=== PATIENT | male | born 1950 | race Caucasian/White ===

== ENCOUNTER 2017-09-30 12:08 | Inpatient (IN) ==
--- NOTE | 2017-09-30 12:56 | Emergency Department Note ---
Disposition Clinical Impression: Elevated troponin, Elevated brain natriuretic peptide (BNP) level, Elevated d- dimer, ÓSCAR (acute kidney injury), Abnormal EKG, Hypoxia Disposition: Admitted As Inpatient Condition: Fair Referrals: Cora Hartman MD [Primary Care Provider] - Forms: ED Satisfaction Letter Time of Disposition: 18:46 Arrhythmia/Palpitations HPI - General Chief Complaint: ED Arrhythmia/Palpitations Stated Complaint: "Afib" Time Seen by Provider: 09/30/17 12:39 Source: patient, family Mode of arrival: ambulatory Limitations: no limitations Nursing Notes Reviewed: Yes Vital Signs Reviewed: Yes - History of Present Illness HPI Narrative: Patient is a 67-year-old male with no past medical history except for right- sided neck lipoma. He presents today as a referral from [facility] due to concern for heart arrhythmia and low potassium. Note sent over from preop area reports a potassium of 2.3, reported being in A. fib on the monitor. The patient himself says that he was there to get preop clearance for removal of a lipoma on the right side of his neck by Dr. Mcknight. He says that for the last month, he has been having chest pressure, mainly left-sided, worse with exertion, no radiation, no associated sweating, nausea, vomiting, fevers, abdominal pain. No current chest pain or dyspnea. He has never had a previous heart attack, heart stent, any previous cardiac workup. Also reports that he had basic blood work within the past few days that showed a potassium of 2.3. He was supposed to follow up with his primary care physician but has not. Denies any history of irregular heart rhythms. - Related Data Home Medications Medication Instructions Recorded Confirmed Levothyroxine [Synthroid] 50 mcg PO 0630 09/30/17 09/30/17 Potassium Chloride [Klor-Con 10] 10 meq PO BID 09/30/17 09/30/17 Allergies Allergy/AdvReac Type Severity Reaction Status Date / Time codeine Allergy See Verified 09/30/17 12:16 Comments All systems ED: reviewed and negative except as stated. Constitutional: Denies: fever Cardiovascular: Reports: chest pain, dyspnea on exertion Respiratory: Reports: dyspnea. Denies: cough, wheezes, hemoptysis, stridor, sputum production Gastrointestinal: Denies: abdominal pain, nausea, vomiting, diarrhea Genitourinary: Denies: urgency, dysuria Neurological: Denies: headache, weakness, numbness, paresthesias Past Medical History - Past Medical History Attestation: Yes The following information was validated with the patient. Source: patient Medical history: Reports: diabetes Psychiatric history: Reports: no psych history - Social History Smoking Status: Never smoker Smokeless Tobacco Status: No Alcohol use: Reports: none Drug use: Reports: none Physical Exam - General Limitations: no limitations General appearance: alert, in no apparent distress - Head Head exam: atraumatic, normocephalic, normal inspection - Eye Eye exam: Present: normal appearance, PERRL, EOMI - ENT ENT exam: normal exam, normal oropharynx, mucous membranes moist - Neck Neck exam: Present: full ROM, trachea midline, other (Large right-sided lipoma approx size of baseball) - Chest Chest inspection: Present: normal inspection, symmetric chest wall rise - Respiratory Respiratory exam: Present: normal lung sounds bilaterally - Cardiovascular Cardiovascular exam: Present: regular rate, normal rhythm, normal heart sounds - Abdominal Exam Abdominal exam: Present: soft, Non-Tender. Absent: tenderness, distention, guarding, rebound, rigidity - Extremities Exam Extremities exam: Present: normal inspection, full ROM. Absent: tenderness, pedal edema - Neurological Exam Neurological exam: Present: alert, oriented X3, CN II-XII intact. Absent: motor sensory deficit - Psychiatric Psychiatric exam: Present: normal affect, normal mood - Skin Skin exam: Present: warm, dry, intact, normal color Course Course Narrative: Patient mildly hypertensive. He is also hypoxic at about 85-88% on presentation. Currently on 2-3 L nasal cannula oxygen and maintaining saturation of 95%. Physical exam shows sinus bradycardia, lungs were clear to auscultation bilaterally. Abdomen soft and nontender. EKG obtained here shows normal sinus rhythm with 1 PAC. No signs of A. fib. There is a possible U wave in V2, and V3. Otherwise, no other acute ST changes. We will go ahead and start potassium infusion. We will repeat BMP to assess potassium. Also obtain chest x-ray, troponin. We will also obtain d-dimer to due to the patient being hypoxic with clear lungs. 16:35 currently waiting on VQ study. Patient had an elevated d-dimer, elevated troponin level, elevated BNP. Chest x-ray shows cardiomegaly and mild pulmonary edema with small left-sided effusion. Patient was unable to have a PE CT study due to elevated creatinine and poor GFR. VQ study was ordered instead. Patient was given an aspirin but not currently started on any heparin as he has no current chest pain or shortness of breath at this time. Potassium was 3.5, changed IV potassium to PO potassium instead. 17:39 VQ scan showed multiple matched defects in both lungs, low probability for PE. However, there is still concerned that there could be pulmonary embolism due to elevated troponin, elevated BNP. I discussed all the results with the patient and we had shared decision making about starting him on heparin preemptively just in case he had any pulmonary embolism or cardiac etiology currently occurring. He continues to decline any chest pain. He does have some mild shortness of breath at this time. He is still requiring 2 L nasal cannula oxygen to keep saturation above 88%. Patient was started on heparin drip. He has no contraindications to heparin at this time. Patient will be admitted to the hospitalist for further care for hypoxia, elevated troponin level, elevated BNP, possible. 18:44 hospitalist has recommended that I contact cardiology. I spoke with Dr. Carr, she recommended heparin which has already been started. No further recs , will act as consult. Chest X-Ray 09/30/17 12:18 IMPRESSION: Cardiomegaly and mild pulmonary edema. Small left-sided effusion and associated atelectasis. D/ / Cornelius Miller MD / Cornelius Miller MD Interpreting Provider: Cornelius Miller MD Pulmonary Perfusion Imaging 09/30/17 14:08 IMPRESSION: Multiple matched defects within both lungs, consistent with low probability for PE. D/ / Ponce Wells MD / Ponce Wells MD Interpreting Provider: Ponce Wells MD Vital Signs Temperature 98.2 F 09/30/17 12:11 Pulse Rate 63 09/30/17 12:11 Respiratory Rate 18 09/30/17 12:11 Blood Pressure 187/88 09/30/17 12:11 O2 Sat by Pulse Oximetry 85 09/30/17 12:11 Temperature 98.2 F 09/30/17 12:11 Pulse Rate 62 09/30/17 17:03 Respiratory Rate 18 09/30/17 17:03 Blood Pressure 171/106 09/30/17 17:03 O2 Sat by Pulse Oximetry 99 09/30/17 17:03 Oxygen Delivery Oxygen Delivery Room Air Arrhythmia/Palpitations - [facility] Narrative Medical decision making narrative: Patient mildly hypertensive. He is also hypoxic at about 85-88% on presentation. Currently on 2-3 L nasal cannula oxygen and maintaining saturation of 95%. Physical exam shows sinus bradycardia, lungs were clear to auscultation bilaterally. Abdomen soft and nontender. EKG obtained here shows normal sinus rhythm with 1 PAC. No signs of A. fib. There is a possible U wave in V2, and V3. Otherwise, no other acute ST changes. We will go ahead and start potassium infusion. We will repeat BMP to assess potassium. Also obtain chest x-ray, troponin. We will also obtain d-dimer to due to the patient being hypoxic with clear lungs. 16:35 currently waiting on VQ study. Patient had an elevated d-dimer, elevated troponin level, elevated BNP. Chest x-ray shows cardiomegaly and mild pulmonary edema with small left-sided effusion. Patient was unable to have a PE CT study due to elevated creatinine and poor GFR. VQ study was ordered instead. Patient was given an aspirin but not currently started on any heparin as he has no current chest pain or shortness of breath at this time. Potassium was 3.5, changed IV potassium to PO potassium instead. 17:39 VQ scan showed multiple matched defects in both lungs, low probability for PE. However, there is still concerned that there could be pulmonary embolism due to elevated troponin, elevated BNP. I discussed all the results with the patient and we had shared decision making about starting him on heparin preemptively just in case he had any pulmonary embolism or cardiac etiology currently occurring. He continues to decline any chest pain. He does have some mild shortness of breath at this time. He is still requiring 2 L nasal cannula oxygen to keep saturation above 88%. Patient was started on heparin drip. He has no contraindications to heparin at this time. Patient will be admitted to the hospitalist for further care for hypoxia, elevated troponin level, elevated BNP, possible. 18:44 hospitalist has recommended that I contact cardiology. I spoke with Dr. Carr, she recommended heparin which has already been started. No further recs , will act as consult. - Medical Records Medical records reviewed: Yes I reviewed the patient's medical records. - Lab Data Lab results reviewed: Yes I reviewed the patient's lab results. Result diagrams: 09/30/17 13:08 09/30/17 13:08 Lab Results 09/30/17 09/30/17 09/30/17 Range/Units 13:08 13:08 13:08 WBC 6.8 (4.3-11.1) K/mcL RBC 5.83 H (4.19-5.50) M/mcL Hgb 16.4 (12.9-16.9) g/dL Hct 51.9 H (37.5-50.1) % MCV 89.0 (83.0-100.0) fL MCH 28.1 (28.0-33.3) pg MCHC 31.6 (31.6-35.5) g/dL RDW 15.1 H (11.5-14.5) % Plt Count 237 (140-400) K/mcL MPV 13.0 H (9.4-12.4) fL Immature Gran % 0.4 (0-4) % Seg Neutrophils % 66.1 % Lymphocytes % 22.4 % Monocytes % 9.1 % Eosinophils % 1.0 % Basophils % 1.0 % Neutrophils # 4.5 (1.6-8.9) K/mcL Lymphocytes # 1.5 (0.6-4.6) K/mcL Monocytes # 0.6 (0.0-1.3) K/mcL Eosinophils # 0.1 (0.0-0.6) K/mcL Basophils # 0.1 (0.0-0.2) K/mcL PT 14.4 H (9.4-12.1) Seconds INR 1.3 APTT 29.6 (26.0-36.0) Seconds D-Dimer 1896 H (0-500) ng/mLFEU Sodium 137 (136-145) mEq/L Potassium 3.5 (3.5-5.1) mEq/L Chloride 92 L (98-107) mEq/L Carbon Dioxide 38 H (23-29) mEq/L BUN 24 H (8-23) mg/dL Creatinine 2.02 H (0.70-1.30) mg/dL Est GFR ( Amer) 40 L (> 60) Est GFR (Non-Af Amer) 33 L (> 60) BUN/Creatinine Ratio 12 (6-26) Glucose 330 H (70-105) mg/dL Calculated Osmolality 301 H (280-300) Calcium 8.5 L (8.6-10.3) mg/dL Troponin I 0.34 H* (< 0.04) ng/mL B-Natriuretic Peptide (Less than 100) pg/mL TSH 6.432 H (0.340-5.600) mcIU/mL 09/30/17 Range/Units 13:08 WBC (4.3-11.1) K/mcL RBC (4.19-5.50) M/mcL Hgb (12.9-16.9) g/dL Hct (37.5-50.1) % MCV (83.0-100.0) fL MCH (28.0-33.3) pg MCHC (31.6-35.5) g/dL RDW (11.5-14.5) % Plt Count (140-400) K/mcL MPV (9.4-12.4) fL Immature Gran % (0-4) % Seg Neutrophils % % Lymphocytes % % Monocytes % % Eosinophils % % Basophils % % Neutrophils # (1.6-8.9) K/mcL Lymphocytes # (0.6-4.6) K/mcL Monocytes # (0.0-1.3) K/mcL Eosinophils # (0.0-0.6) K/mcL Basophils # (0.0-0.2) K/mcL PT (9.4-12.1) Seconds INR APTT (26.0-36.0) Seconds D-Dimer (0-500) ng/mLFEU Sodium (136-145) mEq/L Potassium (3.5-5.1) mEq/L Chloride (98-107) mEq/L Carbon Dioxide (23-29) mEq/L BUN (8-23) mg/dL Creatinine (0.70-1.30) mg/dL Est GFR ( Amer) (> 60) Est GFR (Non-Af Amer) (> 60) BUN/Creatinine Ratio (6-26) Glucose (70-105) mg/dL Calculated Osmolality (280-300) Calcium (8.6-10.3) mg/dL Troponin I (< 0.04) ng/mL B-Natriuretic Peptide 3007 H (Less than 100) pg/mL TSH (0.340-5.600) mcIU/mL - Radiology Data Radiology results reviewed: Yes I reviewed the patient's radiology results. Chest X-Ray 09/30/17 12:18 IMPRESSION: Cardiomegaly and mild pulmonary edema. Small left-sided effusion and associated atelectasis. D/ / Cornelius Miller MD / Cornelius Miller MD Interpreting Provider: Cornelius Miller MD Pulmonary Perfusion Imaging 09/30/17 14:08 IMPRESSION: Multiple matched defects within both lungs, consistent with low probability for PE. D/ / Ponce Wells MD / Ponce Wells MD Interpreting Provider: Ponce Wells MD - EKG Data EKG attestation: Yes I reviewed and interpreted this EKG. EKG results narrative: 09/30/2017 at 12:17. Normal sinus rhythm. Rate 60. ME 151. QRS 85. QTC 419. Mild left axis deviation. Possible U waves in V2, V3, V4. No acute ST elevation or depression. PAC. Yusra - Yusra Situation: Demographics, MOA Background: Presenting Complaint, Relevant PMH, Meds, & Allergies Assessment: Vital Signs, Course and respsone to treatment, Exam Concerns, Patient/Family Expectation, Pertinant Lab Results, Outstanding Labs Recommendation: Barrier(s) to disposition, Recommendation based on pending studies, treatments, or consults Yusra Report Given to: Stella Young Time: 18:46
--- NOTE | 2017-09-30 13:27 | Emergency Department Note ---
START Narrative - START START: I examined this patient and my medical decision-making was reviewed with the Resident Physician. I agree with the documented findings, disposition and treatment plan as described except to the extent set forth below. 67-year-old male presented to the emergency room from the preop testing unit for concerns for lab abnormalities as well as shortness of breath and congestion and some chest pressure. Patient is scheduled to have an lipoma excision from his neck. They noted in preop testing that he had with they thought was atrial fibrillation and sent him to the ER. His sats here were 88% on room air. He does have a history of smoking but that was over 20 years ago. He does not currently smoke. Does not wear home oxygen. He denies any chest pain at this time but states he has had some chest pressure over the past month. Denies any cough or sputum production. No GI symptoms. She does take potassium supplements. He does not take any water pills.
[2017-09-30 13:41] LABS: Basophils # 0.1 K/mcL (0.0-0.2); Eosinophils # 0.1 K/mcL (0.0-0.6); Hematocrit 51.9 % (37.5-50.1); Hemoglobin 16.4 g/dL (12.9-16.9); Immature Granulocytes % 0.4 % (0-4); Lymphocytes # 1.5 K/mcL (0.6-4.6); Lymphocytes % 22.4 %; Mean Corpuscular HGB Conc 31.6 g/dL (31.6-35.5); Mean Corpuscular Hemoglobin 28.1 pg (28.0-33.3); Monocytes # 0.6 K/mcL (0.0-1.3); Monocytes % 9.1 %; Neutrophils # 4.5 K/mcL (1.6-8.9); Platelet Count 237 K/mcL (140-400); Red Blood Count 5.83 M/mcL (4.19-5.50); Red Cell Distribution Width 15.1 % (11.5-14.5); Segmented Neutrophils % 66.1 %
[2017-09-30 13:46] LABS: INR 1.3; Prothrombin Time 14.4 Seconds (9.4-12.1)
[2017-09-30 13:49] LABS: Activated Partial Thrombo Time 29.6 Seconds (26.0-36.0)
[2017-09-30 13:54] LABS: Calcium 8.5 mg/dL (8.6-10.3); Potassium 3.5 mEq/L (3.5-5.1)
[2017-09-30] MEDS ORDERED: Potassium Chloride Elixir 20 MEQ/15 ML UDC PO ONE (13:55)
[2017-09-30 14:02] LABS: Troponin I 0.34 ng/mL (< 0.04)
[2017-09-30] MEDS ORDERED: Aspirin 325 MG TABLET PO ONE (14:02)
[2017-09-30 14:07] LABS: Thyroid Stimulating Hormone 6.432 mcIU/mL (0.340-5.600)
[2017-09-30] MEDS ORDERED: *HR* Heparin 5,000 UNIT/ML VIAL IVP ONE (17:38)
[2017-09-30] MEDS ORDERED: *HR* Heparin 5,000 UNIT/ML VIAL IVP PRN ×2 (17:38)
[2017-09-30] MEDS: Heparin 25,000 UNIT/500 ML D5W 25,000 UNIT/500 ML BAG IVC SCH (18:29)
[2017-09-30] MEDS ORDERED: Furosemide 40 MG/4 ML VIAL IVP ONE (18:35)
[2017-09-30] MEDS ORDERED: *HR* Dextrose 50 % in Water (Syg) 50 ML SYRINGE IVP PRN (20:13)
[2017-09-30] MEDS ORDERED: D5% in Water 1,000 ML IVC PRN (20:13)
[2017-09-30] MEDS ORDERED: Dextrose Gel 15 GM/37.5 ML TUBE PO PRN ×2 (20:13)
[2017-09-30] MEDS ORDERED: Naloxone 0.4 MG/ML INJ IVP PRN (20:15)
--- NOTE | 2017-09-30 20:19 | Internal Med History&Physical ---
Date of Encounter: 09/30/17 Time of Encounter: 20:17 Internal Medicine - H&P: HPI Chief complaint: Dyspnea Admitted From: Emergency Dept Plans for Post Hospital Care: Home History of present illness: Mr. Patel is a 67 year old male who has a history of hypothyroidism and have not seen a doctor in 30 years who presents to the ED today from the preop after he was noted to have suspected atrial fibrillation. The patient was sent to the emergency department. EKG was done showed normal sinus rhythm with PACs. The patient did have some T-wave inversion in leads 1, V4, V5, V6. The patient reported that he has been having shortness of breath for a couple of months. He has noticed about 10-15 weight gain as well. He was being evaluated for removal of a right sided neck lipoma and was given clearance for that when he was sent to the ED. Upon presentation to the ED he was hypoxic in the 80s and put on supplemental oxygen. He was hypertensive with blood pressure 187/88. Laboratory workup was with multiple abnormalities including elevated D dimers, elevated BNP, abnormal kidney function, hyperglycemia, troponins of 0.34, TSH of 6.43 to. The patient's imaging studies showed pulmonary edema. Due to the elevated D dimers the patient underwent a VQ scan which came back with low probability for PE. Cardiology were consulted and recommended starting heparin drip. The patient reports orthopnea, dyspnea on exertion, occasional chest pressure with no radiation. Denies any fever, chills, nausea, vomiting, abdominal pain, urinary symptoms, or neurological symptoms Past Med Surg Social Fam HX - Past Medical History Medical history: diabetes Psychiatric history: no psych history - Social History Smoking Status: Never smoker Smokeless Tobacco Status: No Alcohol use: none Drug use: none Internal Medicine - H&P: Meds Levothyroxine [Synthroid] 50 mcg PO 0630 09/30/17 [History] Potassium Chloride [Klor-Con 10] 10 meq PO BID 09/30/17 [History] 3 Allergy/AdvReac Type Severity Reaction Status Date / Time codeine Allergy See Verified 09/30/17 12:16 Comments All Systems PM: A 10-system review of systems was performed and is negative for pertinent findings except as documented above in the HPI. Review of systems: All systems reviewed are negative except for as mentioned above - Constitutional Vitals: Temp Pulse Resp BP Pulse Ox 98.2 F 62 18 171/106 99 09/30/17 12:11 09/30/17 17:03 09/30/17 17:03 09/30/17 17:03 09/30/17 17:03 Exam: GEN: NAD HEENT: AT, NC, No cyanosis, oral mucosa is moist, No JVD, lipoma in the right posterior neck size of a big [place] Lymphatics: No lymphadenoapthy Eyes: Extrocular muscles intact, anicteric CVS:RRR. S1, S2, No m/r/g RESP: Diminished with bibasilar crackles ABD: Soft, NT, ND, +BS EXT: 2+ edema, No rashes, 2+ DP NEURO: Nonfocal, CN II-XII intact, No focal motor or sensory deficits Psych: Cooperative, Not anxious or depressedl Internal Med - H&P Results - Labs CBC & Chem 7: 09/30/17 13:08 09/30/17 13:08 - Assessment and plan (1) Acute respiratory failure with hypoxia Current Visit: Yes Status: Acute Assessment and plan: Multifactorial possibly stemming from NSTEMI, pulmonary edema, possible PE. Continue with O2 support and treat as below. (2) Elevated troponin Current Visit: Yes Status: Acute Assessment and plan: We will trend. Continue heparin drip. Check echocardiogram. Consult cardiology. Start aspirin 81 mg daily. Patient was given 325 mg in the ED. Telemetry. (3) NSTEMI (non-ST elevated myocardial infarction) Current Visit: Yes Status: Acute Assessment and plan: Treatment as above. (4) CHF exacerbation Current Visit: Yes Status: Acute Assessment and plan: Likely combined systolic and diastolic. We will diurese the patient. Status post 40 mg IV Lasix in the ED. We will evaluate for further diuresis in the morning. Monitor I&O's. Check echocardiogram. Cardiology to see. Nebulizers. O2 support. Qualifiers: Heart failure type: unspecified Qualified Code(s): I50.9 - Heart failure, unspecified (5) Hyponatremia Current Visit: Yes Status: Acute Assessment and plan: This is likely hypervolemic hyponatremia. Should improve with diuresis. (6) Hypothyroidism Current Visit: Yes Status: Acute Assessment and plan: TSH is elevated. Continue levothyroxine for now. Check restive thyroid panel. Qualifiers: Hypothyroidism type: unspecified Qualified Code(s): E03.9 - Hypothyroidism , unspecified (7) Hypertensive urgency Current Visit: Yes Status: Acute Assessment and plan: Blood pressure is elevated. We will start the patient on IV hydralazine when necessary for now. 1 start a beta osamn for now while the patient is in CHF. (8) ÓSCAR (acute kidney injury) Current Visit: Yes Status: Acute Assessment and plan: Patient seems to have had abnormal kidney function in the past. This may have been exacerbated by the CHF picture. Status post 40 mg IV Lasix in the ED. We will see how he does with that. Check labs in the morning. Avoid nephrotoxins. Check renal ultrasound. Patient may need a consult nephrology as well. (9) Elevated d-dimer Current Visit: Yes Status: Acute Assessment and plan: Patient has been started on a heparin drip. V/Q with a repeat of low PE properly. Continue heparin drip for now. Check lower extremity Dopplers. (10) Hyperglycemia Current Visit: Yes Status: Acute Assessment and plan: No history of diabetes. Glucose is elevated. Will put patient on insulin sliding scale. Check A1c. (11) DVT prophylaxis Current Visit: Yes Status: Acute Assessment and plan: On heparin drip - Time Spent With Patient Total time spent is greater than 50% in coordination of care (as documented) at patient's floor/unit and/or counseling patient:
[2017-09-30 21:28] LABS: Triiodothyronine (T3) Free 2.68 pg/mL (2.50-3.90)
[2017-09-30 21:32] LABS: Triiodothyronine (T3) Total 0.46 ng/mL (0.87-1.78)
[2017-09-30] MEDS: Ipratropium/Albuterol Neb 3 ML IH SCH (21:36)
[2017-10-01] MEDS: Insulin LISPRO 300 UNITS/3 ML VIAL SQ SCH ×3 (00:47→12:04)
[2017-10-01] MEDS: Ipratropium/Albuterol Neb 3 ML IH SCH ×4 (03:28→22:30)
[2017-10-01 04:59] LABS: Basophils # 0.1 K/mcL (0.0-0.2); Basophils % 1.1 %; Eosinophils # 0.1 K/mcL (0.0-0.6); Eosinophils % 2.3 %; Immature Granulocytes % 0.2 % (0-4); Lymphocytes # 1.2 K/mcL (0.6-4.6); Mean Corpuscular HGB Conc 31.5 g/dL (31.6-35.5); Mean Corpuscular Hemoglobin 27.8 pg (28.0-33.3); Mean Corpuscular Volume 88.3 fL (83.0-100.0); Mean Platelet Volume 13.2 fL (9.4-12.4); Monocytes # 0.5 K/mcL (0.0-1.3); Monocytes % 8.9 %; Neutrophils # 3.7 K/mcL (1.6-8.9); Platelet Count 201 K/mcL (140-400); Red Blood Count 5.21 M/mcL (4.19-5.50); Red Cell Distribution Width 15.1 % (11.5-14.5); Segmented Neutrophils % 65.5 %
[2017-10-01 05:07] LABS: Calcium 8.1 mg/dL (8.6-10.3); Chol/HDL Ratio 2.6 (0-4.9); Magnesium 1.5 mg/dL (1.6-2.6); Potassium 2.9 mEq/L (3.5-5.1)
[2017-10-01 05:13] LABS: Hemoglobin 14.5 g/dL (12.9-16.9)
[2017-10-01] MEDS: Aspirin Enteric Coated 81 MG Tablet PO SCH (08:17)
[2017-10-01 09:48] LABS: Estimated Average Glucose 329 mg/dl; Hemoglobin A1C 13.1 %
--- NOTE | 2017-10-01 10:02 | Cardiology Consult Note ---
<Tamara Yoder - Last Filed: 10/01/17 13:10> Date of Encounter: 10/01/17 Time of Encounter: 09:30 Assessment and Plan (1) Chest pain Current Visit: Yes Status: Acute Atypical chest pain. He reports that he gets pressure like chest pain that is worsened with deep breathing when he exerts himself. No radiation. Relieved by relaxing and breathing slower. troponin 0.34, 0.32, 0.28, 0.24 (trending down) 09/30/2017 EKG: HR 60, NSR PACs, t wave inversion leads 1, V4, V5, V6 potassium 2.9 -[facility] tomorrow. R/B/A were discussed with the patient and he agrees with C -agree with heparin -NPO midnight -potassium supplementation because needs to be within normal limits prior to C Qualifiers: Qualified Code(s): R07.9 - Chest pain, unspecified (2) Elevated troponin Current Visit: Yes Status: Acute troponin 0.34, 0.32, 0.28, 0.24 09/30/2017 EKG: HR 60, NSR PACs, t wave inversion leads 1, V4, V5, V6 -will monitor (3) Elevated brain natriuretic peptide (BNP) level Current Visit: Yes Status: Acute possible undiagnosed CHF BNP 3007 CXR demonstrated cardiomegaly and mild pulmonary edema Patient reports orthopnea, PND, leg edema -echo pending (4) Hypertensive urgency Current Visit: Yes Status: Acute Resolved. BP 132/70 now blood pressure 187/88 at admission -currently on hydralazine (5) ÓSCAR (acute kidney injury) Current Visit: Yes Status: Acute ÓSCAR. Creatinine 1.92 (2.02, 1.72) GRF 33, 35 -avoid nephrotoxic agents (6) Hypokalemia Current Visit: Yes Status: Acute potassium 2.9 -potassium supplementation because needs to be within normal limits prior to [facility] Discussion w patient/family: The assessment and plan as outlined above was discussed with the patient and/or family members who expressed understanding and agreement. All questions were answered. Thank you for involving us in the care of your patient. Please call with any questions. History of Present Illness Consult date: 10/01/17 Requesting physician: Iker Garzon Consult reason: elevated troponin Chief complaint: dyspnea History of present illness: Mr. Patel is a 67 year old male with no prior past medical history that he knows of because he has not seen a physician in 20yr. He stated he was at a preop appointment for removal of a lipoma when an EKG was concerning for A.fib so they sent him to the ED. In ED he was hypoxic SPO2 in 80s. Blood pressure was 187/88. Troponin 0.34. DDimer 1896 BNP 3007. Upon my examination he reported that he does get occasional chest pressure more so when he wakes up in the morning. He noted that he feels it when he is deeply breathing for which the pressure is made worse. It lasts a few minutes and is relieved when he rests and breathes slower. If he exerts himself then he gets short of breath and feels the pressure because he is breathing harder. No radiation of chest pain. He admits to orthopnea, PND, leg edema. He denies diaphoresis, nausea, syncope. He is a former smoker that quit 25yr ago but when he did smoke it was 3ppd/ 8yr. He has no prior family cardiac history. He reports he frequently falls with 15 falls in the past 2months but has not hit his head. Past Med Surg Social Fam HX - Past Medical History Medical history: diabetes Psychiatric history: no psych history - Past Surgical History Surgical History: cholecystectomy - Social History Smoking Status: Never smoker Smokeless Tobacco Status: No Alcohol use: none Drug use: none Medications and Allergies Levothyroxine [Synthroid] 50 mcg PO 0630 09/30/17 [History] Potassium Chloride [Klor-Con 10] 10 meq PO BID 09/30/17 [History] 3 Allergy/AdvReac Type Severity Reaction Status Date / Time codeine Allergy See Verified 09/30/17 12:16 Comments All Systems Review: The remainder of the systems were reviewed and are negative - Constitutional Constitutional: frequent falls, no chills, no fever(s), no headache(s) - EENT Eyes: no blurred vision - Cardiovascular Cardiovascular: chest pain at rest, chest pain with exertion, no diaphoresis, no lightheadedness, no palpitations, no syncope - Respiratory Respiratory: dyspnea, no cough - Gastrointestinal Gastrointestinal: no abdominal pain, no diarrhea, no nausea - Musculoskeletal Musculoskeletal: no abnormal gait - Integumentary Integumentary: no erythema - Neurological Neurological: dizziness, no abnormal speech Physical Examination Vital Signs, Last 4 Hours Temp Pulse Resp BP Pulse Ox 10/01/17 06:51 97.8 F 56 14 132/70 92 General: Conversant, No Apparent Distress HEENT: Atraumatic, Mucus Membranes Moist, Other (large lipoma on back of neck ) Neck: No JVD Cardiac: Reg Rate and Rhythm, Normal S1 and S2 Lungs: Normal Breath Sounds, Other (rales b/l) Neuro: Alert and responsive, No focal deficits noted Abdomen: Soft, Non-Tender Skin: No rashes noted on visualized skin Musculoskeletal: No Chest Wall Tenderness Extremities: No Edema Results 10/01/17 03:25 10/01/17 03:25 Lab Results 10/01/17 10/01/17 10/01/17 00:26 03:25 03:25 WBC 5.6 Hgb 14.5 D Hct 46.0 Plt Count 201 APTT 60.0 H D Sodium Potassium Chloride Carbon Dioxide BUN Creatinine Glucose Calcium Magnesium Troponin I 0.28 H* 10/01/17 10/01/17 03:25 06:32 WBC Hgb Hct Plt Count APTT 52.4 H Sodium 141 Potassium 2.9 L Chloride 96 L Carbon Dioxide 38 H BUN 23 Creatinine 1.92 H Glucose 151 H Calcium 8.1 L Magnesium 1.5 L Troponin I Consult Discharge Plan - Plan Referrals: Cora Hartman MD [Primary Care Provider] - <AnahyBrent - Last Filed: 10/01/17 16:18> Date of Encounter: 10/01/17 - Attending Attestation I have personally performed a face to face evaluation on this patient. I have reviewed and agree with the care plan. History and Exam by me shows: 67-year-old male with abnormal EKG positive troponins peak 0.3 to elevated hemoglobin A1c of 13.1 presents to the emergency department after an abnormal EKG in the outpatient setting. Will obtain echocardiogram correct electrolyte abnormalities and plan for echocardiogram to rule out structural heart abnormalities. Patient likely will benefit from a left heart catheter during his inpatient visit due to the multiple comorbidities/cardiac risk factors and elevated troponins. He complains of significant dyspnea on exertion. Assessment and Plan Discussion w patient/family: The assessment and plan as outlined above was discussed with the patient and/or family members who expressed understanding and agreement. All questions were answered. Thank you for involving us in the care of your patient. Please call with any questions. History of Present Illness History of present illness: Mr. Patel is a 67 year old male All Systems Review: The remainder of the systems were reviewed and are negative Physical Examination Vital Signs, Last 4 Hours Temp Pulse Resp BP Pulse Ox 10/01/17 15:54 98.2 F 74 14 163/79 91 10/01/17 15:25 16 90 Results 10/01/17 03:25 10/01/17 03:25 Lab Results 10/01/17 10/01/17 10/01/17 00:26 03:25 03:25 WBC 5.6 Hgb 14.5 D Hct 46.0 Plt Count 201 APTT 60.0 H D Sodium Potassium Chloride Carbon Dioxide BUN Creatinine Glucose Calcium Magnesium Troponin I 0.28 H* 10/01/17 10/01/17 10/01/17 03:25 06:32 09:11 WBC Hgb Hct Plt Count APTT 52.4 H Sodium 141 Potassium 2.9 L Chloride 96 L Carbon Dioxide 38 H BUN 23 Creatinine 1.92 H Glucose 151 H Calcium 8.1 L Magnesium 1.5 L Troponin I 0.24 H*
[2017-10-01] MEDS: Heparin 25,000 UNIT/500 ML D5W 25,000 UNIT/500 ML BAG IVC SCH (13:07)
--- NOTE | 2017-10-01 15:29 | Internal Med Progress Note ---
Date of Encounter: 10/01/17 Time of Encounter: 15:25 - Assessment and plan (1) Elevated troponin Current Visit: Yes Status: Acute Assessment and plan: serial troponin 0.34, 0.32, 0.28, 0.24. EKG with T wave inversion leads 1, V4, V5, V6. Heparin drip started and ED. Denies chest pain, no SOB. Evaluated by cardiology who is recommending LHC. NPO at midnight. Continue ASA. (2) NSTEMI (non-ST elevated myocardial infarction) Current Visit: Yes Status: Acute Assessment and plan: Treatment as above. (3) Elevated d-dimer Current Visit: Yes Status: Acute Assessment and plan: V/Q with a low probability for PE. Check lower extremity Dopplers. On heparin gtt as noted above (4) ÓSCAR (acute kidney injury) Current Visit: Yes Status: Acute Assessment and plan: Cr 2, GFR 40. No known kidney disease however creatinine 1.7 on 08/2017. Received dose IV Lasix and ED. Repeat Cr 1.9. Cont IV lasix. Monitor renal function closely. Nephrology consulted (5) Acute respiratory failure with hypoxia Current Visit: Yes Status: Acute Assessment and plan: Multifactorial possibly stemming from NSTEMI, pulmonary edema. Continue with O2 ; wean as able. Treat underlying causes. (6) CHF exacerbation Current Visit: Yes Status: Acute Assessment and plan: TTE with EF 50%, mild diastolic dysfunction. BNP 3007, CXR with cardiomegaly and mild pulmonary edema. Received IV Lasix in the ED. Cont IV lasix for now. Cardiology following. Qualifiers: Heart failure type: diastolic Qualified Code(s): I50.33 - Acute on chronic diastolic (congestive) heart failure (7) Pericardial effusion Current Visit: Yes Status: Acute Assessment and plan: TTE with trivial pericardial effusion, no evidence of tamponade. Continue IV Lasix. Cardiology following. (8) Aneurysm of descending thoracic aorta Current Visit: Yes Status: Acute Assessment and plan: TTE with dilated descending thoracic aorta. Recommend a dedicated CT imaging however unable to have CTA with renal function. (9) Hypothyroidism Current Visit: Yes Status: Acute Assessment and plan: per hx. TSH is elevated, free T3 slightly low. Suspect subclinical hypothyroidism. Continue levothyroxine. Recommend repeat TSH in 6-8 weeks Qualifiers: Hypothyroidism type: unspecified Qualified Code(s): E03.9 - Hypothyroidism , unspecified (10) Hypertensive urgency Current Visit: Yes Status: Acute Assessment and plan: No previous history hypertension. BP uncontrolled on arrival. Improved with addition of BB. Monitor BP and titrate PRN (11) Diabetes Current Visit: Yes Status: Acute Assessment and plan: new diagnosis. Hgb A1c 13.1%. SSI. Monitor blood sugar and titrate PRN Qualifiers: Diabetes mellitus type: type 2 Diabetes mellitus technician terminal and repeater insulin use: without detention use Diabetes mellitus complication status: with kidney complications Chronic kidney disease stage: stage 4 (severe) Qualified Code( s): E11.22 - Type 2 diabetes mellitus with diabetic chronic kidney disease; N18.4 - Chronic kidney disease, stage 4 (severe); N18.4 - Chronic kidney disease , stage 4 (severe); N18.4 - Chronic kidney disease, stage 4 (severe); N18.4 - Chronic kidney disease, stage 4 (severe) (12) DVT prophylaxis Current Visit: Yes Status: Acute Assessment and plan: On heparin drip - Time Spent With Patient Total time spent is greater than 50% in coordination of care (as documented) at patient's floor/unit and/or counseling patient: - Subjective Interval history: Seen and examined at bedside, patient is new to me. Information obtained from chart review and patient report. Lying in bed, appears comfortable. He has no complaints other than when he to eat. Denies chest pain, no shortness of breath - Constitutional Vitals: Temp Pulse Resp BP Pulse Ox 97.8 F 68 14 159/69 91 10/01/17 11:36 10/01/17 11:36 10/01/17 11:36 10/01/17 11:36 10/01/17 11:36 General appearance: Present: A&O X 3, no acute distress - Head Head exam: Present: atraumatic, normocephalic - Eye Eye exam: Present: PERRL, conjuntiva pink, sclera anicteric Pupils: Present: PERRL - Neck Neck exam general surgery: Present: supple, trachea midline. Absent: lymphadenopathy, normal inspection Additional comments: Large posterior lipoma - Respiratory Respiratory exam: Present: CTAB. Absent: accessory muscle use, rales, rhonchi, wheezes - Cardiovascular Cardiovascular exam: Present: RRR, +S1, +S2. Absent: diastolic murmur, gallop, rubs, systolic murmur - GI/Abdominal GI/Abdominal exam: Present: normal bowel sounds, soft, no peritoneal signs. Absent: distended, tenderness - Extremities Exam Extremities exam: Present: pedal edema, warm, radial pulses palpable and symmetrical. Absent: calf tenderness, cyanotic - Neurological Exam Neurological exam: Present: CN II-XII intact, oriented X3, no focal deficits. Absent: pronater drift, facial droop, speech deficit - Skin Skin exam: Present: dry, intact Internal Medicine: Result - Labs CBC & Chem 7: 10/01/17 03:25 10/01/17 03:25 Labs: Short CBC 10/01/17 Range/Units 03:25 WBC 5.6 (4.3-11.1) K/mcL Hgb 14.5 D (12.9-16.9) g/dL Hct 46.0 (37.5-50.1) % Plt Count 201 (140-400) K/mcL Neutrophils # 3.7 (1.6-8.9) K/mcL BMP 10/01/17 03:25 Sodium 141 Potassium 2.9 L Chloride 96 L Carbon Dioxide 38 H BUN 23 Creatinine 1.92 H Glucose 151 H Calcium 8.1 L Cardiac Enzymes 10/01/17 10/01/17 Range/Units 03:25 09:11 Troponin I 0.28 H* 0.24 H* (< 0.04) ng/mL - ABG Interpretation ABG results: PT/INR, D-dimer PT 14.4 Seconds (9.4-12.1) H 09/30/17 13:08 D-Dimer 1896 ng/mLFEU (0-500) H 09/30/17 13:08 - Impressions Impressions Echocardiogram 10/01/17 20:15 Impressions: Technically somewhat challenging exam due to frequent ectopy. LVEF 50%. Mild left ventricular diastolic dysfunction. RV is enlarged. Function appears low normal to mildly reduced. There is flattening of the IVS during diastole suggesting RV volume overload. Bi-atrial enlargement. Mild-moderate tricuspid regurgitation, may be underestimated. Mild-moderate pulmonic regurgitation. Moderate pulmonary hypertension. There is a trivial pericardial effusion present along the RV and RA. There is no echocardiographic evidence of tamponade. A pleural effusion is present. Dilated descending thoracic aorta. Recommend dedicated CT imaging. Left Ventricular Wall Motion: Rest Echo Findings All wall segments showed normal motion. Findings: Study Quality * Technically somewhat challenging exam due to frequent ectopy. ECG Findings * Normal sinus rhythm with ectopy. Left Ventricle * LVEF 50%. * Mild left ventricular diastolic dysfunction. * Normal LV chamber size and wall thickness. Right Ventricle * RV is enlarged. Function appears low normal to mildly reduced. Left Atrium * Moderate-severely dilated left atrium. Right Atrium * Severely dilated right atrium. Mitral Valve * Normal mitral valve structure. * No mitral stenosis. * Trace mitral regurgitation. * Mild mitral annular calcification Aortic Valve * No aortic regurgitation. * Trileaflet aortic valve. * No aortic stenosis. Tricuspid Valve * Normal tricuspid valve structure. * Mild-moderate tricuspid regurgitation. * Estimated RA pressure is 20 mmHg. * Estimated RVSP is 53 mmHg. * Moderate pulmonary hypertension. Pulmonic Valve * Pulmonic valve is not well visualized. * No pulmonic stenosis. * Mild-moderate pulmonic regurgitation. Pulmonary Artery * Pulmonary artery not well visualized. Aorta * Normally sized aortic root. * Dilated descending thoracic aorta. Pericardium * There is a trivial pericardial effusion present along the RV and RA. * There is no echocardiographic evidence of tamponade. Interatrial Septum * No evidence of PFO by color Doppler. IVC * The IVC is dilated. * < 50% respiratory change. Pleural Effusion * A pleural effusion is present. Consult Discharge Plan - Plan Referrals: Cora Hartman MD [Primary Care Provider] -
[2017-10-01] MEDS ORDERED: 0.9 % Sodium Chloride 1,000 ML IVC SCH (15:45)
[2017-10-01] MEDS ORDERED: Furosemide 40 MG/4 ML VIAL IVP ONE (16:23)
[2017-10-01 18:09] LABS: Bilirubin,Urine Negative (Negative); Blood,Urine Trace (Negative); Clarity,Urine Clear (Clear); Color,Urine Yellow (Yellow); Glucose,Urine (UA) 250 mg/dL (Normal); Ketones,Urine Negative (Negative); Leukocyte Esterase,Urine Negative (Negative); Nitrite,Urine Negative (Negative); PH,Urine 6.5 pH Units (5.0-8.0); Protein,Urine >=300 mg/dL (Neg-Trace); Specific Gravity,Urine 1.018 (1.010-1.025); Urobilinogen,Urine Normal (Normal)
[2017-10-01 18:14] LABS: Bacteria,Urine None Seen per hpf (None-Few); Hyaline Casts,Urine None Seen per lpf (None-Few); Squamous Epithelial Cell,Urine Many per lpf (None-Few); WBC,Urine 0-3 per hpf (0-3)
[2017-10-01 18:36] LABS: Adenovirus Not Detected (Not Detect); Bordetella Pertussis Not Detected (Not Detect); Chlamydophila pneumoniae Not Detected (Not Detect); Coronavirus 229E Not Detected (Not Detect); Coronavirus HKU1 Not Detected (Not Detect); Coronavirus NL63 Not Detected (Not Detect); Coronavirus OC43 Not Detected (Not Detect); Human Metapneumovirus Not Detected (Not Detect); Human Rhinovirus/Enterovirus Not Detected (Not Detect); Influenza A Subtype 2009 H1 Not Detected (Not Detect); Influenza A Untypeable Not Detected (Not Detect); Influenza B Not Detected (Not Detect); Mycoplasma pneumoniae Not Detected (Not Detect); Parainfluenza Virus 1 Not Detected (Not Detect); Parainfluenza Virus 2 Not Detected (Not Detect); Parainfluenza Virus 3 Not Detected (Not Detect); Parainfluenza Virus 4 Not Detected (Not Detect); Respiratory Syncytial Virus Not Detected (Not Detect)
[2017-10-01 19:17] LABS: Protein/Creatinine Ratio,Urine 8.44 mg/mg (0.00-0.20); Sodium, Urine 73.5 mEq/L
[2017-10-01] MEDS ORDERED: Insulin LISPRO 300 UNITS/3 ML VIAL SQ SCH (21:00)
[2017-10-02] MEDS: Heparin 25,000 UNIT/500 ML D5W 25,000 UNIT/500 ML BAG IVC SCH (02:56)
[2017-10-02] MEDS: Ipratropium/Albuterol Neb 3 ML IH SCH ×3 (03:53→15:21)
[2017-10-02 06:40] LABS: Calcium 8.1 mg/dL (8.6-10.3); Potassium 3.9 mEq/L (3.5-5.1)
[2017-10-02] MEDS: Aspirin Enteric Coated 81 MG Tablet PO SCH (08:38)
[2017-10-02] MEDS: Insulin LISPRO 300 UNITS/3 ML VIAL SQ SCH ×3 (08:38→18:06)
--- NOTE | 2017-10-02 09:52 | Pre-Sedation Evaluation ---
Pre-sedation evaluation - Pre-sedation checklist Date of procedure: 10/02/17 Procedure: [facility] Recent Vitals: Last Vital Signs Temp 97.5 F L 10/02/17 08:06 Pulse 65 10/02/17 08:06 Resp 18 10/02/17 09:48 BP 177/84 10/02/17 08:06 Pulse Ox 88 10/02/17 09:48 H&P (including ROS) documented in medical record: Yes Previous reaction to sedatives/anesthetics: No Dietary Status: NPO after Midnight Airway Assessment: Patient can open mouth completely, TMJ function normal ASA Classification *see protocol: CLASS II-Mild systemic disease Plan of Care: Pt appropriate candidate for procedure/moderate/conscious sedation , Risks/benefits of procedure/sedation discussed w/ patient/family
[2017-10-02] MEDS ORDERED: 0.9 % Sodium Chloride 1,000 ML IVC SCH (10:00)
[2017-10-02] MEDS ORDERED: 0.9 % Sodium Chloride 1,000 ML ONE ×2 (11:58→12:15)
[2017-10-02] MEDS ORDERED: Heparin 1,000 UNITS/500 mL 500 ML ONE (11:58)
[2017-10-02] MEDS ORDERED: ISOVUE-370 200 ML INFUS..BTL IV ONE (11:59)
[2017-10-02] MEDS ORDERED: *HR* Heparin 10,000 UNIT/10 ML VIAL ONE (11:59)
[2017-10-02] MEDS ORDERED: *HR* FentaNYL (PF) 100 MCG/2 ML VIAL ONE (12:19)
[2017-10-02] MEDS ORDERED: *HR* Midazolam HCl 2 MG/2 ML VIAL ONE (12:19)
[2017-10-02] MEDS ORDERED: Nitroglycerin 1,000 MCG/10 ML VIAL IV ONE (12:32)
[2017-10-02] MEDS ORDERED: Verapamil 5 MG/2 ML VIAL ONE (12:32)
--- NOTE | 2017-10-02 12:59 | Nephrology Consult Note ---
Date of Encounter: 10/02/17 Time of Encounter: 12:56 Assessment and Plan (1) ÓSCAR (acute kidney injury) Current Visit: Yes Status: Acute On admission Cr was 2.02, last Cr was on 09/23/17 which Cr was 1.72. ÓSCAR is likely due to cardiorenal syndrome. Cr for the last 3 days has improved. Expect renal function to improve with cardiac functionality. Patient will require CABG procedure for 3 vessel disease Will continue to monitor renal function, but does not require STUDENT SUPPORT ADVISOR at this point. Lasix administration was also likely a contributor. - for renal protection, would not recommend diuretics at this time - avoid nephrotoxins if possible - renal dosing - renal diet - strict I/O (2) CHF exacerbation Current Visit: Yes Status: Acute per primary team Qualifiers: Heart failure type: diastolic Qualified Code(s): I50.33 - Acute on chronic diastolic (congestive) heart failure (3) Diabetes Current Visit: Yes Status: Acute per primary team Qualifiers: Diabetes mellitus type: type 2 Diabetes mellitus terminal block assembler insulin use: without terminal block assembler use Diabetes mellitus complication status: with kidney complications Chronic kidney disease stage: stage 4 (severe) Qualified Code( s): E11.22 - Type 2 diabetes mellitus with diabetic chronic kidney disease; N18.4 - Chronic kidney disease, stage 4 (severe); N18.4 - Chronic kidney disease , stage 4 (severe); N18.4 - Chronic kidney disease, stage 4 (severe); N18.4 - Chronic kidney disease, stage 4 (severe) (4) Elevated d-dimer Current Visit: Yes Status: Acute per primary team (5) Elevated troponin Current Visit: Yes Status: Acute per primary team (6) Hypothyroidism Current Visit: Yes Status: Acute per primary team Qualifiers: Hypothyroidism type: unspecified Qualified Code(s): E03.9 - Hypothyroidism , unspecified (7) Pericardial effusion Current Visit: Yes Status: Acute per primary team History of Present Illness - Reason for Consult Consult date: 10/02/17 Acute Kidney Injury Requesting physician: Gali Jernigan - Chief Complaint SUE - History of Present Illness Mr Patel is a 67 yo M w/ pmh of DM, HTN, hypothyroid presents with SUE and found to be in CHF exacerbation w/ LVEF 50%, Acute resp failure, and elevated trops and D-dimer. Nephrology is consulted for ÓSCAR. Patient was away at [employer] on first encounter. Will reevaluate patient upon return. Patient reevaluated at 1:30 PM after returning back from [employer]. Patient has 3 vessel disease and will require CABG. Patient was sleeping post-procedure when examined and seen. HPI and ROS was limited due. Past Med Surg Social Fam HX - Past Medical History Medical history: diabetes Psychiatric history: no psych history - Past Surgical History Surgical History: cholecystectomy - Social History Smoking Status: Never smoker Smokeless Tobacco Status: No Alcohol use: none Drug use: none Medications and Allergies Levothyroxine [Synthroid] 50 mcg PO 0630 09/30/17 [History] Potassium Chloride [Klor-Con 10] 10 meq PO BID 09/30/17 [History] 3 Allergy/AdvReac Type Severity Reaction Status Date / Time codeine Allergy See Verified 09/30/17 12:16 Comments Review of Systems ROS unobtainable: other (PAtient remained sedated from cath procedure) Exam - Vital Signs Vital signs: Initial Vital Signs Temp Pulse Resp BP Pulse Ox 98.2 F 63 18 187/88 85 09/30/17 12:11 09/30/17 12:11 09/30/17 12:11 09/30/17 12:11 09/30/17 12:11 Vital Signs - Last 8 Hours Temp Pulse Resp BP Pulse Ox 10/02/17 11:50 97.9 F 55 15 150/69 96 10/02/17 09:48 18 88 10/02/17 08:06 97.5 F L 65 18 177/84 92 10/02/17 07:30 92 Intake and Output 10/01/17 10/02/17 10/02/17 23:59 07:59 15:59 Intake Total 721 / 721 263 / 263 Output Total 450 / 450 175 / 175 Balance 271 / 271 263 / 263 -175 / -175 Intake: IV Fluids 481 / 481 263 / 263 Heparin 25,000 UNIT/500 ML D5W 431 / 431 263 / 263 25,000 unit In 500 ml @ 14 UNIT /KG/HR 27.687 mls/hr IVC . [id number] [facility] Rx#:[id number] Magnesium Sulfate Premix 2gm/ 50 / 50 50mL 2 gm In 50 ml @ 12.5 mls/ hr IVPB ONCE ONE Rx#:[id number] Oral 240 / 240 Output: Urine 450 / 450 175 / 175 Other: Meal Dinner Percent of Meal Consumed 90% Stool Size Small Stool Consistency soft formed Stool Color Brown # Voids 1 Weight 96.4 kg Blood Glucose* 244 134 Patient Weight 10/02/17 23:59 Weight 96.4 kg - General Appearance General appearance: well-developed, well-nourished, appears started age, obese EENT: mucous membranes moist Neck: no JVD, supple Respiratory: clear Cardiology: no edema, regular rate, regular rhythm Gastrointestinal: normoactive bowel sounds Integumentary: warm and dry Results - Lab Results 10/01/17 03:25 10/02/17 05:56 Most recent lab results Calcium 8.1 mg/dL (8.6-10.3) L 10/02/17 05:56 Magnesium 1.5 mg/dL (1.6-2.6) L 10/01/17 03:25 Urine Creatinine 70 mg/dL 10/01/17 17:50 Urine Sodium 73.5 mEq/L 10/01/17 17:50 Urine Total Protein 591 mg/dL (1-14) H 10/01/17 17:50 Consult Discharge Plan - Plan Referrals: Cora Hartman MD [Primary Care Provider] -
--- NOTE | 2017-10-02 13:21 | Invasive Diagnostic Lab Proc ---
Name: Vega Patel Date of Study: 10/02/2017 Date: 1950 Ht: 70.1in Medical Record#: [id number] Age: 67 Wt: 211.64lb Gender: Male BSA: 2.14 Order #: [id number] BMI: 30.3 Physicians Procedure Physician: Ketan Hairston MD, [facility] Referring MD: Referring MD: Staff Name Position Time In Ryley Spencer RN Supervisor Firearms 12:17 PM Geraldine Moore RN Supervisor Firearms 12:17 PM Fredo Clifford RT (R) Monitor 12:17 PM Deepak Benitez RN Scrub 12:18 PM Indications Indication Non-Stemi Procedures Performed Procedure L HRT ARTERY/VENTRICLE ANGIO Pre-Procedure Checklist Informed consent is complete signed and on chart. H&P is on chart. ID band is on and ID verified with patient. Patient NPO for procedure The procedure was described for the patient and questions were answered. Blood Pressure: 176/96 ECG is on chart. Rhythm: NSR Plan of Care Patient will tolerate the procedure without complications. Adequate level of comfort will be maintained. Hemodynamics will remain stable Patient will recover from procedure without complications. Respiratory function will be maintained. Cardiac rhythm will remain stable. Patient temperature will be maintained. Patient and/or family have verbalized understanding of the procedure. Patient Education Chief Complaint/Reason for Test: Cardiac Cath Developmental Category: Geriatric (65+ years) Developmentally Appropriate for Age: Yes Learning Barriers: None Education Needs: Procedure Education Method: Verbal Information Taught: Cardiac Cath Educational Evaluation: Able to repeat information Intravenous Access Time IV Size Location DC'd Fluid/Drip Rate Units RN 12:16 PM 20g 1 1/" Peripheral-Lock On Arrival Rt Antecubital 0.9NaCl 25 ml/hr Ryley Spencer RN Allergies codeine Vital Signs Time BP (mmHg) HR (bpm) O2 Sat. RR (bpm) LOC 12:18 PM 176 / 96 68 91 % 18 5 = Fully awake and oriented or at pre-proc level 12:19 PM / % 4 = Oriented but drowsy 12:34 PM / % 4 = Oriented but drowsy 12:49 PM / % 5 = Fully awake and oriented or at pre-proc level 12:29 PM 176 / 96 69 91 % 12:34 PM 160 / 88 66 81 % 12:39 PM 160 / 93 53 88 % 12:44 PM 162 / 84 67 94 % 12:49 PM 147 / 107 68 90 % 12:54 PM 106 / 72 66 91 % 12:59 PM 121 / 77 65 90 % Procedural Medications Time Medication Dose Units Method Given By 12:25 PM Oxygen 2 L/min nasal cannula Ryley Spencer RN 12:31 PM Versed 2 mg Intravenous Geraldine Moore RN 12:31 PM Fentanyl 50 mcg Intravenous Geraldine Moore RN 12:35 PM Oxygen 15 L/min simple face mask Geraldine Moore RN 12:49 PM Lidocaine 2% 0.5 ml Subcutaneous Ketan Hairston MD, FAC 12:51 PM Heparin 2000 units Nitroglycerin 200 mcg Verapamil 2.5 mg Intraarterial Ketan Hairston MD, [facility] ASA Classification: CLASS II- Mild systemic disease (i.e. well-controlled diabetes, hypertension, asthma, cigarette smoking) Breann Score Preprocedure Postprocedure Activity 2- Moves 4 extremities sustained head lift Activity 2- Moves 4 extremities sustained head lift Circulation 2- SBP +/= 20 points of pre-anesthetic level Circulation 2- SBP +/= 20 points of pre-anesthetic level Consciousness 2- Awake and alert oriented x 3 Consciousness 2- Awake and alert oriented x 3 O2 Saturation 2- Able to maintain O2 satruation of 92% on room air O2 Saturation 2- Able to maintain O2 satruation of 92% on room air Respiratory 2- Able to deep breathe and cough well Respiratory 2- Able to deep breathe and cough well Total Score 10 Total Score 10 Contrast Agent: Isovue Diagnostic Contrast: 39 ml Total Contrast: 39 ml Fluoro Dose: 211 mGy Procedure Log Time Note Enter By 12:16 PM CathStat 12:17 PM Pt arrived to labor custodian 2 at 12:17 2 12:17 PM Ryley Spencer RN Position: Supervisor Firearms Time in: 12:17 [email or web address] 12:17 PM Geraldine Moore RN Position: Supervisor Firearms Time in: 12:17 [email or web address] 12:18 PM Fredo Clifford RT (R) Position: Monitor Time in: 12:17 2 12:18 PM Deepak Benitez RN Position: Scrub Time in: 12:18 [email or web address] 12:18 PM Patient charges- Angio tray pack, Navilyst 3mm J, Pulse Oximetry and ACIST tubing and transducer [email or web address] 12:18 PM Case Delayed No [email or web address] 12:18 PM Physician arrived 12:18 [email or web address] 12:18 PM Meet and greet completed [email or web address] 12:18 PM Sign in performed according to hospital policy. [email or web address] 12:18 PM Procedure start 12:18 [email or web address] 12:18 PM ASA Class CLASS II- Mild systemic disease (i.e. well-controlled diabetes, hypertension, asthma, cigarette smoking) [email or web address] 12:18 PM Time: 12:18 Patient comfortable and pain free: Yes [email or web address] 12:19 PM Time: 12:18LOC: 5 = Fully awake and oriented or at pre-proc level [email or web address] 12:20 PM Clinical Presentation: Non-STEMI [email or web address] 12:25 PM Hair removed from procedure site in procedure lab using clippers. Right wrist prepped with Chloraprep by Deepak Benitez RN, then patient was draped. Skin intact. [email or web address] 12:25 PM Hair removed from procedure site in procedure lab using clippers. Right groin prepped with Chloraprep by Deepak eBnitez RN, then patient was draped. Skin intact. [email or web address] 12:25 PM Time: 12:25 Oxygen on at 2 L/min per nasal cannula by Ryley Spencer RN 12:28 PM What is the NYHA Class? Class 1 [email or web address] 12:28 PM Vitals capture started with the following parameters, Patient=Adult, Interval=5 min, Initial Enlgjkww=133 mmHg, Deflation Rate=3 mmHg, Cuff placed on Right Arm 12:28 PM Recorded ECG: HR=69 Condition=Condition 1 12:29 PM HR=69 bpm, EJYH=463/96 mmhg, SpO2=91.0 % 12: PM Time: 12:31 Versed 2 mg Intravenous Given by Geraldine Moore RN ilson 12:31 PM Time: 12:31 Fentanyl 50 mcg Intravenous Given by Geraldine Moore RN [email or web address] 12:34 PM Time: 12:19LOC: 4 = Oriented but drowsy [email or web address] 12:34 PM Time: 12:18 Patient comfortable and pain free: Yes [email or web address] 12:34 PM HR=66 bpm, OYWR=311/88 mmhg, SpO2=81.0 % 12:36 PM Time: 12:35 Oxygen on at 15 L/min per simple face mask by Geraldine Moore RN [place] [address] 12:39 PM HR=53 bpm, XRBI=676/93 mmhg, SpO2=88.0 % 12:43 PM Pressure channel 1 zeroed. 12:44 PM HR=67 bpm, BHKQ=514/84 mmhg, SpO2=94.0 % 12:49 PM Time out performed according to hospital policy [email or web address] 12:49 PM Time: 12:34 Patient comfortable and pain free: [place] [address] 12:49 PM Time: 12:34LOC: 4 = Oriented but drowsy [email or web address] 12:49 PM HR=68 bpm, AHMM=812/107 mmhg, SpO2=90.0 % 12:49 PM Time: 12:49 0.5 ml Lidocaine 2% to right radial Subcutaneous Given by Ketan Hairston MD, [place] [address] 12:50 PM Access obtained by percutaneous puncture. 6Fr 10cm Terumo Glidesheath sheath placed in right Radial artery. [id number] [place] [address] 12:51 PM 0.035 260cm Navilyst 3mmJ wire [id number] [place] [address] 12:51 PM Time: 12:51 Patient given 2,000 units Heparin, 200 mcg Nitroglycerin, and 2.5 mg Verapamil Intraarterial by Ketan Hairston MD, [facility]. This is given to reduce risk of vessel spasm and thrombosis. [email or web address] 12:51 PM 5Fr TIG catheter inserted over the wire [place] [id number] 12:52 PM Catheter selectively placed in left ventricle [place] [address] 12:53 PM Bolus angiogram of left Ventricle complete: 10 ml/sec for a total of 20 mls [place] [address] 12:53 PM Recorded Pressure: LV, HR=75, Condition=Condition 1 (Left Ventricle) LV 103/3/14 12:54 PM HR=66 bpm, TXPJ=577/72 mmhg, SpO2=91.0 % 12:54 PM Recorded Pressure: LV, Ao, HR=66, Condition=Condition 1 (Left Ventricle) LV 111/4/16, (Aorta) Ao 123/53/81 12:54 PM LCA angiography performed in multiple views. [place] [address] 12:54 PM Recorded Pressure: Ao, HR=81, Condition=Condition 1 (Aorta) Ao 106/62/82 12:56 PM Physician reviewing films [place] [address] 12:57 PM Lesion found in Proximal LAD. Pre Stenosis: 70 Pre ROGER Flow: [email or web address] 12:57 PM Proximal Left Anterior Descending Coronary Artery with 70% stenosis. If graft is supplying this territory, 0 % stenosis. [email or web address] 12:57 PM Lesion found in Mid LAD. Pre Stenosis: 80 Pre ROGER Flow: [email or web address] 12:57 PM Mid/Distal Left Anterior Descending Coronary Artery and diagonal branches with 80% stenosis. If graft is supplying this area, 0 % stenosis [email or web address] 12:57 PM Lesion found in 1st Marginal. Pre Stenosis: 95 Pre ROGER Flow: [email or web address] 12:57 PM Circumflex, Obtuse Marginal, Left Posterior Descending, and Left Posterolateral Coronary Arteries with 95 % stenosis. If graft is supplying this area, 0 % stenosis [email or web address] 12:57 PM Coronary Dominance: right [email or web address] 12:57 PM Recorded Pressure: Ao, HR=67, Condition=Condition 1 (Aorta) Ao 118/66/91 12:58 PM Lesion found in Proximal RCA. Pre Stenosis: 70 Pre ROGER Flow: [email or web address] 12:58 PM Right Coronary, Right Posterior Descending Arteries with Right Posterolateral and Acute Marginal branches with 70 % stenosis. If graft is supplying this area, 0 % stenosis [email or web address] 12:58 PM Catheter removed [email or web address] 12:59 PM HR=65 bpm, ZGEX=655/77 mmhg, SpO2=90.0 % 01:00 PM Arterial sheath pulled, Vasc Band closure device used and was Successful S/N. [email or web address] 01:00 PM 13 ml air in Vasc Band. [email or web address] 01:01 PM Procedure completed at 13:01 [email or web address] 01:01 PM Sign out completed: Radiation Dose 210.97 mGy Fluoro Time: 0.9 Isovue 370 - 200ml contrast 39 ml given by Ketan Hairston MD, [facility]. Complications: NoneCardiac Rehab Consult needed: YesConfirmed administered medications: Yes [email or web address] 01:01 PM Isovue 370 - 200ml,1 Bottle(s) used. [email or web address] 01:01 PM Estimated Blood Loss: less than 20cc [email or web address] 01:01 PM Post ECG NSR [email or web address] 01:01 PM Post Blood Pressure 121/77 [email or web address] 01:02 PM 13:02 Post Pulses Rt Radial 2+ [email or web address] 01:02 PM Information taught Cardiac Cath [email or web address] 01:02 PM Education needs Procedure, Plan of Care, and Disease Process [email or web address] 01:02 PM Learning barriers :Sedated [email or web address] 01:02 PM Education Methods Verbal [email or web address] 01:02 PM Education evaluation Needs further instruction [email or web address] 01:03 PM Site status No bleeding/hematoma - Rt Wrist as reported by Deepak Benitez RN at 13:02 [email or web address] 01:03 PM Delay to floor No [email or web address] 01:03 PM Family placed in consult room. [email or web address] 01:03 PM Complications: None [email or web address] 01:03 PM Fluoro Time: 0.9 [email or web address] 01:03 PM Isovue 370 - 200ml contrast 39 ml given by . [email or web address] 01:03 PM Radiation Dose 210.97 mGy [email or web address] 01:04 PM Time: 12:49LOC: 5 = Fully awake and oriented or at pre-proc level [email or web address] 01:04 PM Time: 12:49 Patient comfortable and pain free: Yes [email or web address] 01:04 PM Physician consulting with DR. Greenfield 2 01:08 PM Patient out of room: 13:08 [email or web address] 01:10 PM Report given to bo GARCIAS Pt taken to 3B Room #23. 13:10 [email or web address] Complications Complication None None Hemodynamics Pressures Site Systolic/A Wave Diastolic/V Wave Mean LV 103 3 14 LV 111 4 16 AO 123 53 81 AO 106 62 82 AO 118 66 91 Post Procedure Information Blood Pressure: 121/77 mmHg Rhythm: NSR Post procedural instructions were given Surgery consult for CABG Closure Device Time Device Success/Fail 10/02/2017 1:00:00 PM Mechanical Compression Successful Site Checks Time Location Status Staff Sheath In? Note 01:02 PM Rt Wrist No bleeding/hematoma Deepak Benitez RN Pulses Time Site Pre-Procedure Post-Procedure Note 10/02/2017 12:20:00 PM Bilateral DP & PT 1+ 10/02/2017 12:29:00 PM Rt Radial 2+ normal allens 1:02:00 PM Rt Radial 2+ Updated by Fredo Clifford RT (R) on 10/02/2017 1:13:32 PM Fredo Clifford RT electronically signed on 10/02/2017 1:13:56 PM with status of Final
[2017-10-02 15:08] VITALS: BP 187/93
--- NOTE | 2017-10-02 15:27 | Cardiothoracic Consult Note ---
Date of Encounter: 10/02/17 Time of Encounter: 15:26 Assessment and Plan (1) NSTEMI (non-ST elevated myocardial infarction) Current Visit: Yes Status: Acute The patient is a 67-year-old poorly controlled type II diabetic, hypertensive man with hypercholesterolemia who was admitted to [facility] after being diagnosed with atrial fibrillation and the PAT clinic. A transthoracic echocardiogram revealed an LVEF 50% with normal left ventricular size and function. The patient; however, has evidence of right-sided heart failure and moderate pulmonary hypertension. Cardiac catheterization revealed severe 3 vessel CAD and LVEF 50%. He has been recommended for high risk CABG. Although the STS cardiac risk calculator gives the patient an operative mortality risk of 3.1%, I believe this is substantially higher given the patient 's right-sided heart failure and overall poor condition. While examining the patient he was dyspneic despite supplemental oxygen and had oxygen saturations in the 80s to low 90s. I believe that the patient should be transferred to a tertiary [facility] for evaluation for high risk CABG versus high risk PCI. The assessment and plan as outlined above was discussed with the patient and/ or family members who expressed understanding and agreement. All questions were answered. - History of Present Illness Consult date: 10/02/17 Requesting physician: Ketan Hairston Consult reason: CABG evaluation Chief complaint: Substernal chest pressure, shortness of breath History of present illness: Mr. Patel is a 67 year old poorly controlled type II diabetic, hypertensive man with hypercholesterolemia who was referred to the PAT clinic prior to undergoing excision of a right posterior neck lipoma. An ECG performed in the PAT clinic revealed atrial fibrillation and he was referred to [facility] emergency department for evaluation. During the evaluation, the patient complained of a several month history of exertional, nonradiating substernal chest pressure, progressive shortness of breath, and progressive dyspnea. The patient was admitted for further cardiac workup. The patient underwent a transthoracic echocardiogram which revealed an LVEF 50% with mild left ventricular diastolic dysfunction. The right ventricle was enlarged with low normal to mildly reduced function. Mild to moderate pulmonary regurgitation and mild to moderate tricuspid regurgitation were noted as was moderate pulmonary hypertension. He underwent cardiac catheterization which revealed severe 3 vessel CAD and it LVEF 50%. In particular the patient has a 70% proximal LAD lesion, an 80% mid LAD lesion, a 95% proximal OM1 lesion , and a 70% proximal RCA lesion. He has been recommended for high risk CABG. Past Med Surg Social Fam HX - Past Medical History Medical history: CHF, COPD, coronary artery disease, diabetes, hyperlipidemia, hypertension, renal disease (ÓSCAR v. CKD) Psychiatric history: no psych history - Past Surgical History Surgical History: cholecystectomy, other (Left ankle ORIF x 2, Right cataract excision with intraocular lens implantation) - Social History Smoking Status: Never smoker Smokeless Tobacco Status: No Alcohol use: none Drug use: none Medications and Allergies Levothyroxine [Synthroid] 50 mcg PO 0630 09/30/17 [History] Potassium Chloride [Klor-Con 10] 10 meq PO BID 09/30/17 [History] 3 Allergy/AdvReac Type Severity Reaction Status Date / Time codeine Allergy See Verified 09/30/17 12:16 Comments All Systems Review: The remainder of the systems were reviewed and are negative Physical Examination Vital Signs, Last 4 Hours Temp Pulse Resp BP Pulse Ox 10/02/17 14:50 72 18 187/93 92 10/02/17 14:18 65 18 177/89 90 10/02/17 14:05 64 18 184/100 91 10/02/17 13:50 65 18 172/88 89 10/02/17 13:34 98.0 F 77 20 161/99 90 10/02/17 11:50 97.9 F 55 15 150/69 96 General: Conversant, Other (Dyspnea) Neck: No JVD, Normal carotid pulses Cardiac: Reg Rate and Rhythm, Normal S1 and S2, No Murmur Lungs: Normal Breath Sounds, No Wheeze, Rales, Rhonchi Neuro: Alert and responsive, No focal deficits noted Vascular: Normal capillary refill Abdomen: Soft, Non-tender Musculoskeletal: No Chest Wall Tenderness Extremities: No Clubbing, No Cyanosis, Other (2+ pitting edema from the knees to the toes) Results 10/01/17 03:25 10/02/17 05:56 Lab Results, Last 24 hours 10/01/17 10/01/17 10/02/17 14:40 22:26 05:56 APTT 44.3 H 75.1 H D Sodium 139 Potassium 3.9 Chloride 96 L Carbon Dioxide 36 H BUN 21 Creatinine 1.76 H Glucose 152 H Calcium 8.1 L 10/02/17 05:56 APTT 86.7 H Sodium Potassium Chloride Carbon Dioxide BUN Creatinine Glucose Calcium - Imaging Chest Xray: image reviewed (Cardio megaly. No pneumothorax. Small left pleural effusion.) Consult Discharge Plan - Plan Referrals: Cora Hartman MD [Primary Care Provider] -
--- NOTE | 2017-10-02 15:44 | Discharge Summary ---
Orders not resulted at time of discharge: Pending orders 10/01/17 13:40 CL Cardiac Catheterization [CL] Routine 10/02/17 15:06 PTT [Activated Partial Thrombo Time] [COAG] Stat 10/03/17 04:00 BMP [Basic Metabolic Panel] AM 0400 10/04/17 04:00 BMP [Basic Metabolic Panel] AM 0400 10/05/17 04:00 BMP [Basic Metabolic Panel] AM 0400 10/06/17 04:00 BMP [Basic Metabolic Panel] AM 040 Date of Encounter: 10/02/17 Time of Encounter: 15:41 - Discharge Diagnosis (1) NSTEMI (non-ST elevated myocardial infarction) Priority: Primary Status: Acute Comments: serial troponin 0.34, 0.32, 0.28, 0.24. EKG with T wave inversion leads 1, V4, V5, V6. Heparin drip started and ED. Denies chest pain, no SOB. 10/02/2017 LHC showed severe 3 vessel CAD and CABG consultation recommended. Evaluated by Dr. Greenfield ([facility]) who recommended transfer to tertiary hospital for high risk CABG versus high risk PCI. Discussed with family and patient at bedside and patient requesting transfer to [facility]. Plan to transfer to [facility] once bed available. Cont heparin gtt, ASA, BB, statin (2) Elevated d-dimer Priority: Primary Status: Acute Comments: V/Q with a low probability for PE. Bilateral lower extremity Doppler negative for DVT. On heparin gtt as noted above (3) ÓSCAR (acute kidney injury) Priority: Primary Status: Acute Comments: Cr 2, GFR 40. No known kidney disease however creatinine 1.7 on 08/2017. Renal function improving while on IV Lasix. Monitor renal function closely. Nephrology followed (4) Acute respiratory failure with hypoxia Priority: Primary Status: Acute Comments: Mmltifactorial with NSTEMI, pulmonary edema. Continue with O2; wean as able. Cont treat underlying causes. (5) CHF exacerbation Priority: Primary Status: Acute Comments: TTE with EF 50%, mild diastolic dysfunction. BNP 3007, CXR with cardiomegaly and mild pulmonary edema. Dramatic with SOB, rails and lower extremity edema. Symptoms improving with IV Lasix. Cardiology followed Qualifiers: Heart failure type: diastolic Qualified Code(s): I50.33 - Acute on chronic diastolic (congestive) heart failure (6) Pericardial effusion Priority: Primary Status: Acute Comments: TTE with trivial pericardial effusion, no evidence of tamponade. Continue IV Lasix. (7) Hypothyroidism Priority: Primary Status: Acute Qualifiers: Hypothyroidism type: unspecified Qualified Code(s): E03.9 - Hypothyroidism , unspecified (8) Hypertensive urgency Priority: Primary Status: Acute Comments: No previous history hypertension. BP uncontrolled on arrival. Improved with addition of BB. Monitor BP and titrate PRN (9) Diabetes Priority: Primary Status: Acute Qualifiers: Diabetes mellitus type: type 2 Diabetes mellitus terminal makeup operator insulin use: without terminal makeup operator use Diabetes mellitus complication status: with kidney complications Chronic kidney disease stage: stage 4 (severe) Qualified Code( s): E11.22 - Type 2 diabetes mellitus with diabetic chronic kidney disease; N18.4 - Chronic kidney disease, stage 4 (severe); N18.4 - Chronic kidney disease , stage 4 (severe); N18.4 - Chronic kidney disease, stage 4 (severe); N18.4 - Chronic kidney disease, stage 4 (severe) (10) Dilated aortic root Priority: Secondary Status: Chronic Comments: TTE shows dilated descending thoracic aorta; dedicated chest CT showed mild dilatation of the ascending and descending aorta without aneurysm. (11) Pleural effusion Priority: Primary Status: Acute Comments: hest CT with moderate bilateral pleural effusions. Would likely benefit from thoracentesis. Continue IV Lasix for now (12) Right-sided heart failure Priority: Primary Status: Acute Comments: suspected. TTE with moderate pulmonary hypertension, massively dilated right atrium and severe tricuspid regurgitation. Evaluated by CTS was concern for right-sided heart failure with moderate pulmonary hypertension. Transferring to [facility] for higher level of care. Qualifiers: Heart failure chronicity: acute Qualified Code(s): I50.811 - Acute right heart failure Hospital course: See assessment and and plan for Hospital course Discharge discussed with: patient (Seen and examined at bedside. Still with complaints of shortness of breath but overall improved. Continues to deny chest pain. Discussed left heart catheterization with him and the CTS recommendation of transferring to [facility]. Patient and family visibly upset but understanding. And agreeable to transfer to [facility]. Discussed with [facility] transfer center multiple times. Patient is accepted to [facility] once bed is available.), family - Time Spent with Patient Total time spent providing and/or coordinating discharge services: - Discharge Medications Home Medications: Levothyroxine [Synthroid] 50 mcg PO 0630 09/30/17 [History] Potassium Chloride [Klor-Con 10] 10 meq PO BID 09/30/17 [History] Allergies/Adverse Reactions: 3 Allergy/AdvReac Type Severity Reaction Status Date / Time codeine Allergy See Verified 09/30/17 12:16 Comments Date of admission: 09/30/17 22:59 Primary care physician: Cora Hartman MD Consults: 10/01/17 08:54 Consult to Nurse Navigator [CONS] Routine Comment: 10/01/17 11:36 Consult to Physical Therapy [CONS] Routine Comment: Evaluate, develop and implement POC Reason for Consult: Evaluation Does patient have active BEDREST order?: No Is patient medically & hemodynamically stable?: Yes OT [Consult to Occupational Therapy] [CONS] Routine Comment: Evaluate, develop and implement POC Reason for Consult: Evaluation Does patient have active BEDREST order?: No Is patient medically & hemodynamically stable?: Yes 10/01/17 16:23 Consult to Nephrology [CONS] Routine Consulting Provider: Kidney Leslie/GISELE/CONI/REMIGIO Reason for Consult: ÓSCAR Call Completed: Yes 10/02/17 13:05 Consult to Cardiothoracic Surgery [CONS] Routine Consulting Provider: Cardiothoracic Surgery Leslie Reason for Consult: open heart Call Completed: Yes Discharging clinician: Gali Jernigan Anticipated date of discharge: 10/02/17 - Constitutional Vitals: Temp Pulse Resp BP Pulse Ox 98.0 F 72 18 187/93 92 10/02/17 13:34 10/02/17 14:50 10/02/17 14:50 10/02/17 14:50 10/02/17 14:50 General appearance: Present: mild distress, A&O X 3, no acute distress - Head Head exam: Present: atraumatic, normocephalic - Eye Eye exam: Present: PERRL, conjuntiva pink, sclera anicteric Pupils: Present: PERRL - Neck Neck exam general surgery: Present: supple, trachea midline. Absent: lymphadenopathy - Respiratory Respiratory exam: Present: rales. Absent: accessory muscle use, rhonchi, wheezes - Cardiovascular Cardiovascular exam: Present: RRR, +S1, +S2. Absent: diastolic murmur, gallop, rubs, systolic murmur - GI/Abdominal GI/Abdominal exam: Present: normal bowel sounds, soft, no peritoneal signs. Absent: distended, tenderness - Extremities Exam Extremities exam: Present: pedal edema, warm, radial pulses palpable and symmetrical. Absent: calf tenderness, cyanotic - Neurological Exam Neurological exam: Present: CN II-XII intact, oriented X3, no focal deficits. Absent: pronater drift, facial droop, speech deficit - Skin Skin exam: Present: dry, intact - Patient Status Disposition: Transfer Other Condition: Fair Functional capacity at discharge: uses cane/walker Overall status at discharge: patient is not back to baseline - Discharge Instructions Follow Up With: Cora Hartman MD [Primary Care Provider] - - Diet and Activity Activity: as per physical therapy Diet: diabetic diet, low fat, low cholesterol, low salt diet
--- NOTE | 2017-10-03 13:32 | Electrocardiograph Report ---
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
--- NOTE | 2017-10-03 13:42 | Electrocardiograph Report ---
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
== END 2017-10-02 19:19 | disposition short-term general hospital (02) | DRG 280 ==
LOC: 3BNU 12:08 → EMEROO 12:08 → 3BNU 19:58
PROVIDERS: ADMIT Internal Medicine; ATTEND Registered Nurse